=== PATIENT | female | born 2000 | race Caucasian/White ===

== ENCOUNTER 2022-08-14 20:10 | Emergency (ER) | payer BC ==
[~2022-08-14] VITALS: Ht 154.9 cm; Wt 61.7 kg
[2022-08-14 20:14] VITALS: BP_SYST 113; PULSE 108; RESP 20; TEMP 98.4; O2SAT 99
[2022-08-14] MEDS ORDERED: BENZ1LOZ73 PO (21:43)
[2022-08-14] MEDS ORDERED: ZIT250 PO (21:43)
== END 2022-08-14 21:51 | disposition home or self-care (01) ==
LOC: SED 20:10
DX: K12.2 Cellulitis and abscess of mouth (principal); J02.9 Acute pharyngitis, unspecified; Z79.899 Other long term (current) drug therapy
CPT/HCPCS: 81025; 99283

== ENCOUNTER 2023-01-21 17:06 | Emergency (ER) | payer BC ==
[~2023-01-21] VITALS: Ht 162.6 cm; Wt 68.0 kg
[~2023-01-21 17:06] MED LIST: BENZ1LOZ73 PO; ZIT250 PO
[2023-01-21 17:29] VITALS: BP_SYST 109; PULSE 80; RESP 18; TEMP 97.4; O2SAT 98
== END 2023-01-21 19:26 | disposition left against medical advice (07) ==
LOC: SED 17:06
DX: R50.9 Fever, unspecified (principal); Z53.21 Procedure and treatment not carried out due to patient leaving prior to being seen by health care provider
CPT/HCPCS: 99281